=== PATIENT | female | born 1940 | race Caucasian/White ===

== ENCOUNTER 2017-10-07 08:05 | Emergency (ER) | payer MEDICARE, BC ==
--- NOTE | 2017-10-07 08:50 | RAD ---
PORTABLE CHEST ONE VIEW: 10/07/2017 at 8:44 a.m. HISTORY: Cough. FINDINGS: The heart size is normal. The aorta is tortuous. The lungs are expanded without focal areas of cons olidation, pneumothorax, hannah pleural edema, or pleural effusions. IMPRESSION: No radiographic evidence of acute cardiopulmonary process. POS: [id number]
== END 2017-10-07 09:14 | disposition home or self-care (01) ==
LOC: SCSER 08:05
DX: R05 Cough (principal); I10 Essential (primary) hypertension; Z86.73 Personal history of transient ischemic attack (TIA), and cerebral infarction without residual deficits; Z79.82 Long term (current) use of aspirin; Z79.899 Other long term (current) drug therapy
CPT/HCPCS: 71010; 87804

== ENCOUNTER 2024-03-20 13:33 | Inpatient (IN) | payer MEDICARE, BC ==
[2024-03-20 15:13] VITALS: BMI 22.3
[2024-03-20] MEDS ORDERED: Ondansetron PF 4 MG/2 ML Vial IVP PRN (15:35)
[2024-03-20] MEDS ORDERED: Acetaminophen 325 MG TAB PO PRN (15:35)
[2024-03-20] MEDS: Sodium Chloride 0.9% 1,000 ML IV SCH (17:37)
[2024-03-20 19:15] LABS: Bilirubin Negative (Negative); Blood, Urine 2+ (Negative); Clarity Turbid (Clear); Glucose, Urine (Dipstick) Normal (Negative); Ketone, Urine 10 mg/dL (Negative); Leukocyte Negative Leu/uL (Negative); Nitrite 2+ (Negative); Protein, Urine (Dipstick) 70 mg/dL (Neg-Trace); RBC/HPF 0-3 HPF (0-3); Specific Gravity, Urine 1.014 (1.002-1.036); Squamous Epithelial 0-3 HPF (0-3); Urobilinogen Normal mg/dL (Less than 2); WBC/HPF 0-3 HPF (0-3); pH, Urine 6.5 (5.0-9.0)
[2024-03-20 19:17] LABS: Bacteria/HPF 1+ HPF (None Seen)
[2024-03-20] MEDS: hydrALAZINE 20 MG/ML VIAL SLOW IVP PRN (21:38)
[2024-03-20] MEDS: Magnesium 2 GM/50 ML(in water) 2 GM in Premix 1 BAG IVPB SCH (21:39)
[2024-03-20] MEDS: hydrALAZINE 25 MG TAB PO SCH (21:39)
[2024-03-20] MEDS: Metoprolol Tartrate 25 MG TAB PO SCH (21:39)
[2024-03-20] MEDS: Simvastatin 10 MG TAB PO SCH (21:39)
[2024-03-21 05:56] LABS: Anion Gap 14 mmol/L (10-20); BUN (Urea Nitrogen) 16 mg/dL (9.8-20.1); Calc. Creatinine Clearance 35 mL/min (70-130); Calcium 10.1 mg/dL (7.8-10.44); Carbon Dioxide 20 mmol/L (23-31); Chloride 95 mmol/L (98-107); Estimated GFR 48; Glucose 94 mg/dL (83-110); Potassium 3.9 mmol/L (3.5-5.1); Sodium 125 mmol/L (136-145)
[2024-03-21] MEDS: Famotidine 20 MG TAB PO SCH (08:54)
[2024-03-21] MEDS: Losartan 25 MG TAB PO SCH (08:55)
[2024-03-21] MEDS: hydrALAZINE 25 MG TAB PO SCH (08:56)
[2024-03-21] MEDS ORDERED: HYDROCHLOROTHIAZIDE PO SCH (09:00)
[2024-03-21] MEDS ORDERED: [UNRECOGNIZED DRUG - OTHER] PO SCH (09:00)
[2024-03-21] MEDS ORDERED: Hydrochlorothiazide 25 MG TAB PO SCH (09:00)
[2024-03-21] MEDS ORDERED: LOSARTAN PO SCH (09:00)
[2024-03-21 11:21] LABS: Anion Gap 10 mmol/L (10-20); BUN (Urea Nitrogen) 16 mg/dL (9.8-20.1); Calc. Creatinine Clearance 37 mL/min (70-130); Calcium 9.9 mg/dL (7.8-10.44); Carbon Dioxide 20 mmol/L (23-31); Chloride 98 mmol/L (98-107); Estimated GFR 49; Glucose 153 mg/dL (83-110); Potassium 3.2 mmol/L (3.5-5.1); Sodium 125 mmol/L (136-145)
[2024-03-21 15:17] VITALS: BMI 23.3
[2024-03-22 09:33] LABS: Anion Gap 12 mmol/L (10-20); BUN (Urea Nitrogen) 13 mg/dL (9.8-20.1); Calc. Creatinine Clearance 44 mL/min (70-130); Calcium 9.5 mg/dL (7.8-10.44); Carbon Dioxide 18 mmol/L (23-31); Chloride 106 mmol/L (98-107); Estimated GFR 59; Glucose 112 mg/dL (83-110); Potassium 3.2 mmol/L (3.5-5.1); Sodium 133 mmol/L (136-145)
[2024-03-22] MEDS: Potassium Chloride 20 MEQ TAB PO SCH (11:32)
[2024-03-22] MEDS: Amlodipine 10 MG TAB PO SCH (14:18)
[2024-03-23 05:17] LABS: Anion Gap 9 mmol/L (10-20); BUN (Urea Nitrogen) 10 mg/dL (9.8-20.1); Calc. Creatinine Clearance 48 mL/min (70-130); Calcium 9.8 mg/dL (7.8-10.44); Carbon Dioxide 22 mmol/L (23-31); Chloride 104 mmol/L (98-107); Estimated GFR 64; Glucose 85 mg/dL (83-110); Potassium 3.9 mmol/L (3.5-5.1); Sodium 131 mmol/L (136-145)
[2024-03-23] MEDS: Amlodipine 10 MG TAB PO SCH (09:01)
[2024-03-24 05:43] LABS: Anion Gap 9 mmol/L (10-20); BUN (Urea Nitrogen) 12 mg/dL (9.8-20.1); Calc. Creatinine Clearance 48 mL/min (70-130); Calcium 9.9 mg/dL (7.8-10.44); Carbon Dioxide 23 mmol/L (23-31); Chloride 104 mmol/L (98-107); Estimated GFR 64; Glucose 79 mg/dL (83-110); Potassium 3.8 mmol/L (3.5-5.1); Sodium 132 mmol/L (136-145)
[2024-03-24] MEDS: Isosorbide Mononitrate 60 MG ER.TAB PO SCH (09:01)
[2024-03-24 12:10] VITALS: BP 137/63; TEMP 98.6
== END 2024-03-24 13:00 | DRG 641 ==
LOC: 2NO 14:26
PROVIDERS: ADMIT Internal Medicine; ATTEND Internal Medicine
DX: E87.1 Hypo-osmolality and hyponatremia (principal); I69.353 Hemiplegia and hemiparesis following cerebral infarction affecting right non-dominant side; E87.6 Hypokalemia; S00.03XA Contusion of scalp, initial encounter; Z66 Do not resuscitate; W19.XXXA Unspecified fall, initial encounter; G93.89 Other specified disorders of brain; I10 Essential (primary) hypertension; I69.320 Aphasia following cerebral infarction; F03.90 Unspecified dementia, unspecified severity, without behavioral disturbance, psychotic disturbance, mood disturbance, and anxiety; Z88.8 Allergy status to other drugs, medicaments and biological substances; Z79.899 Other long term (current) drug therapy; Z90.49 Acquired absence of other specified parts of digestive tract; Z90.710 Acquired absence of both cervix and uterus
CPT/HCPCS: 36415; 36416; 80048; 81003; 81015; 84439; J0360; J3475; J7050